=== PATIENT | male | born 1980 | race Caucasian/White ===

== ENCOUNTER 2024-12-03 18:41 | Emergency (ER) | payer SELFPAY ==
[2024-12-03] MEDS: Fluorescein 1 MG Ophth Strip EYERT ONE (19:43)
== END 2024-12-03 19:45 | disposition home or self-care (01) ==
LOC: JD.ED 18:41
DX: T15.01XA Foreign body in cornea, right eye, initial encounter (principal); Z90.49 Acquired absence of other specified parts of digestive tract; X58.XXXA Exposure to other specified factors, initial encounter
CPT/HCPCS: 65220; 99283; A9270; J3490